=== PATIENT | male | born 1960 | race African-American/Black ===

== ENCOUNTER 2023-12-05 13:59 | Emergency (ER) | payer OTHER ==
[2023-12-05 14:06] VITALS: BP 141/87; PULSE 88; RESP 18; TEMP 98.8; BMI 27.8
[2023-12-05] MEDS: ACETAMINOPHEN 500 MG TABLET (FP) PO ONE (14:20)
[2023-12-05] MEDS ORDERED: ACETAMINOPHEN 500 MG TABLET (FP) ONE (14:21)
[2023-12-05] MEDS ORDERED: oxyCODONE HCL 5 MG TABLET ONE ×2 (15:07→16:24)
[2023-12-05] MEDS: oxyCODONE HCL 5 MG TABLET PO ONE ×2 (15:08→16:25)
== END 2023-12-05 16:45 | disposition home or self-care (01) ==
LOC: JERFT 13:59
DX: S20.211A Contusion of right front wall of thorax, initial encounter (principal); W01.0XXA Fall on same level from slipping, tripping and stumbling without subsequent striking against object, initial encounter
CPT/HCPCS: 71046-TC-FY; 71101-TC-RT-FY; 99283-25